=== PATIENT | female | born 1955 | race Caucasian/White ===

== ENCOUNTER 2020-05-17 10:21 | Outpatient (CLI) | payer BC, SELFPAY ==
--- NOTE | ~2020-05-17 | MM_ITS ---
EXAMINATION: MM screening justus BI w von HISTORY: Screening mammogram TECHNIQUE: Craniocaudal and mediolateral oblique 3-D tomosynthesis images were obtained and synthetic 2-D images were generated. CAD analysis was submitted and interpreted. COMPARISON: 06/10/2018, 10/11/2011 bilateral digital screening mammogram examinations BREAST PARENCHYMAL COMPOSITION: There are scattered areas of fibroglandular density. FINDINGS: There is no evidence of suspicious mass, calcification, or architectural distortion to sugg est malignancy in either breast. There has been no suspicious interval change. IMPRESSION: 1. No mammographic evidence of malignancy. 2. Recommend routine screening mammography in one year. BI-RADS Category 1: Negative Reviewed, dictated and finalized at location A.
== END 2020-05-17 10:22 | disposition home or self-care (01) ==
PROVIDERS: PCP Internal Medicine; Visit Provider Internal Medicine
DX: Z12.31 Encounter for screening mammogram for malignant neoplasm of breast (principal)
CPT/HCPCS: 77063; 77067

== ENCOUNTER 2024-02-11 08:48 | Outpatient (CLI) | payer MEDICARE, OTHER, SELFPAY ==
--- NOTE | ~2024-02-11 | MMUS_ITS ---
EXAMINATION: MM diagnostic justus BI w von, US breast RT limited HISTORY: Previous benign biopsy. TECHNIQUE: Additional 3-D tomosynthesis images of the breasts were performed and synthetic 2-D images were generated. CAD analysis was submitted and interpreted. High resolution Limited right breast ult rasound was performed. COMPARISON: Comparison to multiple prior studies sequentially, with oldest reviewed study dated 05/29. BREAST PARENCHYMAL COMPOSITION: Not dense: There are scattered areas of fibroglandular density. FINDINGS: MAMMOGRAPHIC FINDINGS: The left breast is stable without evidence for malignancy. There are 2 tissue markers in the upper ou ter quadrant of the right breast consistent with previous benign biopsies. There is a new obscured ar ea of asymmetry in the upper outer quadrant posterior to the tissue markers. ULTRASOUND: Complete US of all 4 quadrants of the right breast and retroareolar region was reviewed. At 9:00, 4 c m from the nipple is an irregular shaped partially cystic 6 mm mass with parallel orientation, no pos terior features and internal vascularity. At 9:00, 2 cm from the nipple, there is an oval partially c ystic 4 mm mass with parallel orientation, no internal vascularity and no posterior features. At 12:0 0, 8 cm from the nipple there is a 5 mm cyst. There are multiple additional cysts in the right breast . There is a larger complicated septated cyst measuring 1.8 cm at 10:00, 6 cm from the nipple likely corresponding to the asymmetry seen on mammography. IMPRESSION: 1. Irregular shaped 6 mm mass of the right breast at 9:00, 4 cm from the nipple. 2. Ultrasound-guided right breast biopsy recommended. BI-RADS category 4, suspicious findings. Reviewed, dictated and finalized at location B. IMPRESSION: 1. Irregular shaped 6 mm mass of the right breast at 9:00, 4 cm from the nipple . 2. Ultrasound-guided right breast biopsy recommended. BI-RADS category 4, suspicious findings.
== END 2024-02-11 08:49 | disposition home or self-care (01) ==
PROVIDERS: PCP Physician Assistant Medical; Visit Provider Physician Assistant Medical
DX: R92.8 Other abnormal and inconclusive findings on diagnostic imaging of breast (principal); N63.10 Unspecified lump in the right breast, unspecified quadrant
CPT/HCPCS: 76641; 76642; 77062; 77066; G0279

== ENCOUNTER 2024-06-08 15:24 | Emergency (ER) | payer MEDICARE, OTHER, SELFPAY ==
--- NOTE | ~2024-06-08 | US_ITS ---
EXAMINATION: US venous doppler LE RT DATE: 06/08/2024 18:20 INDICATION: Right leg pain TECHNIQUE: Grayscale ultrasound images without and with compression and Doppler ultrasound images of the right lower extremity veins were obtained. COMPARISON: None. FINDINGS: The visualized portions of right common femoral vein, profunda (deep) femoral vein, femoral vein, pop liteal vein, peroneal veins, posterior tibial veins, and greater saphenous vein outflow are patent. IMPRESSION: 1. No deep venous thrombosis within the right lower extremity, as detailed above. Reviewed, dictated and finalized at location A. L CUTTER IMPRESSION: 1. No deep venous thrombosis within the right lower extremity, as detailed abo ve.
--- NOTE | ~2024-06-08 | XR_ITS ---
XR knee RT 3V Ordering provider: Checo Goel MD History: . knee pain . Comparison: None. FINDINGS: BONES: No acute fracture or dislocation. JOINT SPACES: Normal. SOFT TISSUES: Normal. IMPRESSION: No acute osseous abnormality right knee. Reviewed, dictated and finalized at location A. ORTHOPEDIC TEAM PHYSICIAN
[2024-06-08 15:25] VITALS: BP 127/88; PULSE 86; RESP 20; TEMP 36.7; O2SAT 97
[2024-06-08] MEDS: KETOROLAC 30 MG/ML VIAL (*BKC) IM (16:32)
--- NOTE | 2024-06-08 16:55 | ED.GENADULT ---
HPI - General Adult General Chief complaint: Extremity Injury, Lower Stated complaint: right leg injury Time Seen by Provider: 06/08/24 16:18 History of Present Illness HPI narrative: patient is a 69-year-old female presents emergency department chief complaint of right knee pain. Patient reports that still saw her primary care provider several days ago had plain film x-rays the not been the right hip patient reports that she has had pain in the knee that reports that is not getting better he reports having difficulty putting any weight on it. Related Data Allergies Allergy/AdvReac Type Severity Reaction Status Date / Time codeine Allergy Mild Nausea Verified 06/08/24 15:30 hydromorphone AdvReac Unknown Palpitation Verified 06/08/24 15:30 s Review of Systems Review of Systems: A 10 system review of systems was completed on the patient and is negative except for what is stated in the HPI. Nursing and ancillary documentation was reviewed. PMFSH Past Medical History Medical History PAF (paroxysmal atrial fibrillation) only occurred as adverse reaction to Dilaudid Surgical History Surgical History History of cholecystectomy History of ureter stent Family History Family History Sibling Family history of congestive heart failure Social History Social History Smoking status: Never smoker Alcohol intake: never Alcohol use details: rarely Substance use: never Substance use type: does not use Do You Feel Safe in your Home?: Yes Lack of Transportation: No Lack of Food: Never True Current Housing: I Have Housing Concerned About Future Housing: No Difficulty Paying Gas/Electric Bills: No Difficulty Paying for Meds: No Currently Unemployed: No Education: Decline to Answer Difficulty w/ Childcare or Family Care: No Exam Narrative: GENERAL: Well-appearing, well-nourished, and in no acute distress. HEAD: Normocephalic, atraumatic. EYES: PERRLA and EOMI. ENT: Nares clear, no rhinorrhea or epistaxis. Mucous membranes moist. NECK: Supple. CHEST: Clear to auscultation. No respiratory distress. HEART: Regular rate and rhythm. No murmur heard. Normal peripheral pulses. ABDOMEN: Soft, nontender, nondistended, normal active bowel sounds. EXTREMITIES: Normal range of motion. No edema. SKIN: Warm, dry, no rash. NEURO: No focal deficits. Alert and oriented x3. PSYCH: Normal mood and affect. Course Vital Signs Vital signs: Vital Signs Temperature 36.7 C 06/08/24 15:25 Pulse Rate 86 06/08/24 15:25 Respiratory Rate 20 06/08/24 15:25 Blood Pressure 127/88 06/08/24 15:25 Pulse Oximetry 97 06/08/24 15:25 Oxygen Delivery Room Air 06/08/24 15:25 Temperature 36.7 C 06/08/24 15:25 Pulse Rate 86 06/08/24 15:25 Respiratory Rate 20 06/08/24 15:25 Blood Pressure 127/88 06/08/24 15:25 Pulse Oximetry 97 06/08/24 15:25 Oxygen Delivery Room Air 06/08/24 15:25 Medical Decision Making MDM Narrative Medical decision making narrative: Differential diagnosis includes fracture, Internal derangement of the knee. plain film x-rays were obtained of the right pain venous duplex was obtained that showed no evidence of DVT patient will be placed in a knee immobilizer at home and will remain placed on crutches and instructed to follow-up with her primary care provider and will be referred to Orthopedics Vital Signs Vital Signs: Vital Signs Temperature 36.7 C 06/08/24 15:25 Pulse Rate 86 06/08/24 15:25 Respiratory Rate 20 06/08/24 15:25 Blood Pressure 127/88 06/08/24 15:25 Pulse Oximetry 97 06/08/24 15:25 Oxygen Delivery Room Air 06/08/24 15:25 Temperature 36.7 C 06/08/24 15:25 Pulse Rate 86 06/08/24 15:25 Respiratory Rate 20 06/08/24 15:25 Blood Pressure 127/88 06/08/24 15:25 Pulse Oximetry 97 06/08/24 15:25 Oxygen Delivery Room Air 06/08/24 15:25 Discharge Plan Discharge Clinical Impression: Pain in right knee, Internal derangement of right knee Patient Disposition: Home, Self-Care Condition: Stable Instructions: Antibiotic Form, Crutch Instructions (ED), Knee Pain (ED), Knee Immobilizer (ED) Prescriptions: New diclofenac potassium 50 mg tablet 50 mg PO TID PRN (Reason: pain) Qty: 30 0RF Follow-up/Referrals: Benny Schneider MD [Physician] - Tran Melendez PA-C [Primary Care Provider] - Time of Disposition: 18:33
== END 2024-06-08 19:03 | disposition home or self-care (01) ==
PROVIDERS: Emergency Provider Emergency Medicine; PCP Physician Assistant Medical
DX: M23.91 Unspecified internal derangement of right knee (principal); Z90.49 Acquired absence of other specified parts of digestive tract; M79.604 Pain in right leg
CPT/HCPCS: 73562; 93971; 96372; 99284; J1885

== ENCOUNTER 2024-06-17 13:31 | Outpatient (CLI) | payer MEDICARE, OTHER, SELFPAY ==
--- NOTE | ~2024-06-17 | MR_ITS ---
EXAMINATION: MR knee RT wo con DATE: 06/17/2024 14:26 INDICATION: Right knee pain TECHNIQUE: Magnetic resonance imaging (MRI) of the right knee was performed without intravenous contr ast. Sequences included coronal PD-weighted FSE, coronal PD-weighted FS FSE, sagittal T2-weighted FS E, sagittal PD-weighted FS FSE and axial PD weighted fat saturated FSE. COMPARISON: None. FINDINGS: Medial compartment: Radial tear/avulsion of the posterior root of the medial meniscus. Additional focal small tear of ind eterminate morphology, likely vertical which extends to the inferior articular surface at the junctio n of the middle and inner thirds of the meniscus at the junction of the body and posterior horn. Part ial-thickness cartilage loss with relatively smooth chondral surface along the medial side of the ant erior to central weightbearing medial femoral condyle. Lateral compartment: Lateral meniscus is normal. Articular cartilage is normal. Patellofemoral compartment: Deep chondral ulceration with mild underlying edema-like signal change at the cephalad third of the p atellar apical ridge extending inferomedially to the central aspect of the medial patellar facet. The re is additional deep chondral fissuring extending inferolaterally from the apical ridge with additio nal mild subarticular edema-like signal change at the and central aspect of the lateral patellar face t. Partial-thickness chondral fissuring without degenerative subchondral changes at the inferior aspe ct of the trochlear groove. Ligaments and tendons: Anterior and posterior cruciate ligaments are normal. The medial collateral ligament and fibular silvia ateral ligament complex are normal. The extensor mechanism is normal. The visualized medial and later al hamstring tendons as well as the iliotibial band are normal. Fluid: Minimal right knee joint effusion at the suprapatellar pouch. No loose osteochondral bodies identifie d. Osseous/other: Normal marrow signal aside from the previously noted mild degenerative subchondral signal changes. No fracture or pathologic marrow replacing process. IMPRESSION: 1. Radial tear/avulsion at the posterior root of the medial meniscus with additional small likely stephanie tical tear at the junction of the body and posterior horn. 2. 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 Reviewed, dictated and finalized at location B. SE MACHINE OPERATOR HELPER IMPRESSION: 1. Radial tear/avulsion at the posterior root of the medial meniscus with addit ional small likely vertical tear at the junction of the body and posterior horn . 2. Mild osteoarthritis with moderate grade chondral malacia the medial compartm ent and with moderate and high-grade chondromalacia at the patellofemoral roula rtment.
== END 2024-06-17 13:32 | disposition home or self-care (01) ==
LOC: GOSHIMG 13:33
PROVIDERS: PCP Orthopaedic Surgery; Visit Provider Physician Assistant Medical
DX: M25.561 Pain in right knee (principal); S83.241A Other tear of medial meniscus, current injury, right knee, initial encounter; M17.11 Unilateral primary osteoarthritis, right knee; M22.41 Chondromalacia patellae, right knee
CPT/HCPCS: 73721

== ENCOUNTER 2024-06-20 08:53 | Emergency (ER) | payer MEDICARE, OTHER, SELFPAY ==
[2024-06-20 09:02] VITALS: BP 124/81; PULSE 93; RESP 16; TEMP 36.5; O2SAT 95
--- NOTE | 2024-06-20 09:27 | ED.FEMALEGU ---
HPI - Female Genitourinary General Chief complaint: Urogenital-Female Stated complaint: Uti Symptoms Time Seen by Provider: 06/20/24 09:28 Source: patient Mode of arrival: ambulatory Limitations: no limitations History of Present Illness HPI Narrative: 69-year-old female presents with complaint of urinary frequency, urgency for 2 days. Patient states prior to that she had urinary frequency and urgency about a week ago. Took azo and symptoms improved. Started taking azo again this morning. Reports chills and body aches last night. Concern for urinary tract infection. Denies nausea vomiting. All systems reviewed and negative except as noted above. Related Data Allergies Allergy/AdvReac Type Severity Reaction Status Date / Time codeine Allergy Mild Nausea Verified 06/20/24 09:13 hydromorphone AdvReac Unknown Palpitation Verified 06/20/24 09:13 s Review of Systems Review of Systems: CONSTITUTIONAL: Denies fever, chills, or sweats. EYES: Denies visual changes, redness, or discharge. ENT: Denies rhinorrhea, congestion, sore throat, or otalgia. CARDIOVASCULAR: Denies chest pain, palpitations, or edema. RESPIRATORY: Denies cough or dyspnea. GASTROINTESTINAL: Denies abdominal pain, nausea, vomiting, or diarrhea. GENITOURINARY: Denies dysuria or hematuria. Reports urinary frequency, urgency, incontinence. SKIN: Denies rash or itching. MUSCULOSKELETAL: Denies back pain, joint pain, or myalgia. NEUROLOGIC: Denies headache, numbness, or weakness. PSYCHIATRIC: Denies anxiety or depression. All other systems reviewed are negative, except as documented in HPI. COUNT INCLUDES THE [facility] Past Medical History Medical History (Updated 06/20/24 @ 09:34 by Natalia Clement NP) Chondromalacia, right knee DJD (degenerative joint disease) of knee Medial meniscus tear PAF (paroxysmal atrial fibrillation) only occurred as adverse reaction to Dilaudid Pain in right knee Surgical History Surgical History History of cholecystectomy History of ureter stent Family History Family History Sibling Family history of congestive heart failure Social History Social History Smoking status: Never smoker Alcohol intake: never Alcohol use details: rarely Substance use: never Substance use type: does not use Do You Feel Safe in your Home?: Yes Lack of Transportation: No Lack of Food: Never True Current Housing: I Have Housing Concerned About Future Housing: No Difficulty Paying Gas/Electric Bills: No Difficulty Paying for Meds: No Currently Unemployed: No Education: Decline to Answer Difficulty w/ Childcare or Family Care: No Comments At time of signature, agree with nursing past medical, surgical, social and family history. There is no relevant family history pertinent to the presenting complaint. Exam Narrative: GENERAL: This is a well-nourished, well-developed patient, in no apparent distress. HEAD: normocephalic, atraumatic. EYES: PERRL. Sclera clear/white. Vision is grossly intact. EARS: External ears normal NOSE: External nose normal NECK: Neck supple, non-tender without lymphadenopathy, masses or thyromegaly. CARDIOVASCULAR: Regular rate and rhythm without murmurs, gallops, or rubs. RESPIRATORY: Clear to auscultation. Breath sounds equal bilaterally. No wheezes, rales, or rhonchi. SKIN: warm, Dry, intact with no suspicious lesions or rash, good texture and turgor. NEURO: awake, alert, and oriented to person, place and time. There were no obvious focal neurologic abnormalities. EXTREMITIES: No joint tenderness, effusion, or edema noted. Course Course Level of Care: Express Care Visit Vital Signs Vital signs: Vital Signs Temperature 36.5 C 06/20/24 09:02 Pulse Rate 93 06/20/24 09:02 Respiratory Rate 16 06/20/24 09:02 Blood Pressure 124/81 06/20/24 09:02 Pulse Oximetry 95 06/20/24 09:02 Temperature 36.5 C 06/20/24 09:02 Pulse Rate 93 06/20/24 09:02 Respiratory Rate 16 06/20/24 09:02 Blood Pressure 124/81 06/20/24 09:02 Pulse Oximetry 95 06/20/24 09:02 Reviewed MDM - Female Genitourinary MDM Narrative Medical decision making narrative: Urinalysis most likely inaccurate due to patient taking azo. Urine culture ordered. Will treat patient with antibiotic today due to patient's symptoms. Patient well-appearing, nontoxic. Patient is aware of diagnosis, understands and agrees to treatment plan. Anticipatory guidance given. Patient agrees to follow-up as directed and is aware of reasons to seek care at the emergency department. Portions of this record may have been created with voice recognition software Lab Data Labs: Lab Results 06/20/24 Range/Units 09:29 POC Urine Color [place] POC Urine Clarity Clear POC Urine pH 6.0 POC Ur Specif [place] 1.015 POC Urine Protein 2+ (Negative) POC Ur Glucose (UA) Negative (Negative) POC Urine Ketones Negative (Negative) POC Urine Blood Negative (Negative) POC Urine Nitrite Negative (Negative) POC Urine Bilirubin Negative (Negative) POC Urine Urobilinogen 0.2 POC U Leukocyte Esteras Trace (Negative) Discharge Plan Discharge Clinical Impression: Urinary tract infection Qualifiers: Urinary tract infection type: site unspecified Hematuria presence: without hematuria Qualified Code(s): N39.0 - Urinary tract infection, site not specified Patient Disposition: Home, Self-Care Condition: Stable Instructions: Antibiotic Form, Urinary Tract Infection in Women (DC) Additional Instructions: Take antibiotic as prescribed until gone. Take Tylenol or ibuprofen every 6-8 hours as needed for pain and fever. May continue to take [id number] azo as needed for your symptoms. Drink at least 64 oz water a day. Follow-up with your primary care physician if symptoms are not improving. If you have fever, severe pain, vomiting go to the ER. Prescriptions: New ciprofloxacin HCl 500 mg tablet 500 mg PO BID 7 Days Qty: 14 0RF Follow-up/Referrals: Tran Melendez PA-C [Primary Care Provider] - Time of Disposition: 09:34
[2024-06-20 09:31] LABS: EDUAAPPEAR Clear; EDUABILI Negative (Negative); EDUABLOOD Negative (Negative); EDUACOLOR1 Orange; EDUAGLUCOSE Negative (Negative); EDUAKETONE Negative (Negative); EDUALEUKO Trace (Negative); EDUANITRATE Negative (Negative); EDUAPROTEIN 2+ (Negative); EDUASPGRAVITY 1.015; EDUAUROBILI 0.2
== END 2024-06-20 09:39 | disposition home or self-care (01) ==
PROVIDERS: Emergency Provider Nurse Practitioner Family; PCP Physician Assistant Medical
DX: N39.0 Urinary tract infection, site not specified (principal)
CPT/HCPCS: 81003; 87086; 99213; G0463

== ENCOUNTER 2024-09-03 12:58 | Outpatient (CLI) | payer MEDICARE, OTHER, SELFPAY ==
--- NOTE | ~2024-09-03 | MMUS_ITS ---
EXAMINATION: MM diagnostic justus RT w von, US breast RT complete HISTORY: Right breast lump. TECHNIQUE: Additional 3-D tomosynthesis images of the right breast were performed and synthetic 2-D i mages were generated. CAD analysis was submitted and interpreted. High resolution complete right erlinda st ultrasound was performed. COMPARISON: Comparison to multiple prior studies sequentially, with oldest reviewed study dated 05/29. BREAST PARENCHYMAL COMPOSITION: Not dense: There are scattered areas of fibroglandular density. FINDINGS: MAMMOGRAPHIC FINDINGS: There are multiple masses of the right breast, largest in the upper outer quadrant of the right breas t, middle third measuring approximately 2.1 cm cyst. There are no suspicious calcifications or jeremias ectural distortion. ULTRASOUND: Complete US of all 4 quadrants of the right breast/s and retroareolar region was reviewed. At 12:00, 3 cm from the nipple there is a 5 mm cyst. At 4:00, 4 cm from the nipple there is a branching tubular structure consistent with mildly dilated ducts. At 6:00, 1 cm from the nipple there is an oval hypoe choic mass measuring 9 x 3 x 5 mm with low-level internal echoes, likely benign. At 9:00, 4 cm from t he nipple there is a cluster of microcysts measuring 6 mm. At 10:00, 6 cm from the nipple there is a 2 cm cyst corresponding to the dominant right breast mass seen on mammography. IMPRESSION: 1. Stable likely benign right breast masses. 2. Recommend 6 month follow-up diagnostic right mammogram and Limited right breast ultrasound. BI-RADS category 3, probably benign findings. Reviewed, dictated and finalized at location B. GENCY ROOM RN IMPRESSION: 1. Stable likely benign right breast masses. 2. Recommend 6 month follow-up diagnostic right mammogram and Limited right ana ast ultrasound. BI-RADS category 3, probably benign findings.
--- OUTSIDE RECORDS SUMMARY | 2024-09-03 13:04 | XMS_ITS | Continuity of Care Document ---
Author Organization [facility] Address [address] [place] [address] Phone Care Team Providers Care Lab Manager Name Role Phone Deepa White Unavailable Unavaila ble Allergies, Adverse Reactions, Alerts Substance Reaction Status Criticality HYDROMORPHONE HCL Active No Informa tion codeine Active No Information Medications Medication Instructions Dosage Effective Dates (start - stop) Status Comments hydrocodone 5 mg-acetaminophen 325 mg tablet take 1 - 2 Tablet by oral route every 4 - 6 hours as needed for pain. Maximum 10 tablets per day - Active ibuprofen 400 mg tablet take 1 tablet by oral route every 4 - 6 hours as needed 400 MG - Active Osteo Bi-Flex 250 mg-200 mg tablet take 2 tablet by oral route every day 2 tablet - Active Centrum Silver Women 8 mg iron-400 mcg-50 mcg tablet - Active Procedures Procedure Date POSTOP FOLLOW-UP VISIT KNEE ARTHROSCOPY/SURGERY RADEX KNE / VIEWS OFFICE/OUTPATIENT VISIT NEW Advance Directives Directive Yes / No Effective Date File Name No Information Encounters Encounter Description Practice Location Reason(s) For Visit Diagnoses Date Provider Providers Copied on Encounter [facility] , [address], [place], [address], [place] tel:[phone] [facility] S/P right knee arthroscopy Zheng Arenas. [address], [place], [address]. tel:[phone] Referring Provider: Tran Mon, [address] [place] [address], [address]. tel:[phone] [facility] , [address], [address], [place] [phone] [facility] Effusion, right kneeOther tear of medial meniscus, current injury, right knee, initial encounter [address] [place] [address] [facility], [place], [place], [id number] . tel: [phone] [facility] , [address], [address], [place] tel:[phone] [facility] No Information [address] [address] [facility], [place], [place], [id number] . tel: [phone] [facility] , [address], [address], tel:[phone] [facility] Tear of medial meniscus of right knee, unspecified tear type, unspecified whether old or current tear, initial encounter [address] [place] [address] [facility], [place], [place], [id number] . tel: [phone] OFFICE/OUTPAT IENT VISIT NEW [facility] , [address], [address], [place] tel:[phone] [facility] Pain, joint, knee, rightTear of medial meniscus of right knee, unspecified tear type, unspecified whether old or current tear, initial encounterChon dromalacia, right knee [address] [place] [address] [facility], [place], [place], [id number] . tel: [phone] Referring Provider: Tran Mon, [address] [place] [address], [address]. tel:[phone] Family History Family Member Type Diagnosis Age At Onset No Information Payers Payer name Insurance type Covered constitution party ID Authorbelkis us(s) Medicare E2 OT [id number] [place] Kaye Mariee [place] [id number] Social History Type Description Quantity Date Captured Comments Alcohol Use Details Unknown Caffeine Use Details Unknown Tobacco Use Status No Information Smoking Status No Information Sex Female Vital Signs Date / Time: Height Weight BMI Pulse Rate Blood Pressure Temperature Respiratory Rate Body Surface Area Head Circumference Head Circ. Percentile Wt./Theo. Percentile BMI percentile Pulse Ox Inhaled Ox 10:37 AM 63.00 in 83.915 kg (185.00 lbs) 32.7 7 kg/m eter (2) Chief Complaint And Reason For Visit No Information Reason For Referral Reason For Referral No Information Plan Of Treatment Date Type Action Status Referral Ordered: RADEX KNE /2 VIEWS RT knee ordered Patient Education Knee: Exercises complet ed History Of Present Illness Encounter Date Complaint History Of Prese nt Illness No Information Functional Status Date Functional Assessmen t Pain Score 2/10 Instructions Date Instruction Additional Infor agus Fall prevention home exercise program handout provided Assessments Type Assessment Date assessment S/P right knee arthroscopy Patient Care Teams Name Effective Dates (start - stop) Status Members No Information
--- OUTSIDE RECORDS SUMMARY | 2024-09-03 13:04 | XMS_ITS | Clinical Summary ---
Author Organization [facility] Address [address] [place] [id number] Care Team Providers Care Cylinder Inspector And Tester Name Role Phone Unavailable Primary Care Provider Unavailabl e Social History Tobacco Use Types Packs/Day Years Used Date Smoking Tobacco: Never Assessed Comments Unknown Sex and Gender Information Value Date Recorded Sex Assigned at Not on file Legal Sex Female 1:44 AM CDT Gender Identity Not on file Sexual Orientation Not on file Plan of Treatment Health Maintenance Due Date Last Done Comments Colorectal Cancer Screening Colonoscopy (10 Years) 1957 Hepatitis C 1975 DTaP, Tdap and Td Vaccines ( 1 - Tdap) 1976 Mammogram Screening 1997 Zoster Vaccines (1 of 2) 2007 Dexa Scan (General) 2022 Pneumococcal Vaccine: 65+ Ye ars (1 of 1 - PCV) 2022 COVID-19 Vaccine ( - 2023-2 5 season) 2024 Influenza Adult (#1) 2024 RSV Immunization or 60+ Years (1 - 1-dose 75+ series) 2032 Meningococcal B Vaccine Aged Out No l onger eligible based on patient's age to complete this topic Meningococcal Vaccine Aged Out No jamel lamont eligible based on patient's age to complete this topic RSV Immunizations Under 20 Months Aged Out No longer eligible based on patient's age to complete this topic
== END 2024-09-03 12:59 | disposition home or self-care (01) ==
LOC: ANHIMG 12:59
PROVIDERS: PCP Physician Assistant Medical; Visit Provider Surgery
DX: R92.8 Other abnormal and inconclusive findings on diagnostic imaging of breast (principal); N63.10 Unspecified lump in the right breast, unspecified quadrant
CPT/HCPCS: 76641; 77061; 77065; G0279

== ENCOUNTER 2024-10-12 14:35 | Outpatient (CLI) | payer MEDICARE, OTHER, SELFPAY ==
--- NOTE | ~2024-10-12 | MR_ITS ---
MR breast BI wo/w con 10/13/2024 08:14 CDT INDICATION: Nipple discharge. Breast mass. TECHNIQUE: MRI of the breasts perform using standard protocol pre-and post IV contrast with the follo wing sequences: Axial T2 STIR, axial T1, axial vibrant T1 with fat suppression precontrast and multip hasic postcontrast. 17 cc ProHance administered intravenously. COMPARISON: Comparison to multiple prior studies including mammograms and ultrasounds sequentially, w ith oldest reviewed study dated 05/17/2020. FINDINGS: There are multiple bilateral breast cysts. There are scattered areas of fibroglandular cont ent. Right breast: There are no abnormalities on the precontrast sequences. There is minimal background pa renchymal enhancement. No enhancing lesions following contrast administration. No areas of enhancem ent meeting threshold criteria on CAD analysis. No evidence of signal abnormalities in the axillary or internal mammary node distributions. LEFT BREAST: No signal abnormalities on precontrast sequences. There is minimal background parenchym al enhancement. No enhancing lesions following contrast administration. No areas of enhancement me eting threshold criteria on CAD analysis. No evidence of signal abnormalities in the axillary or in ternal mammary node distributions.] IMPRESSION: 1: Right breast: Negative. No evidence of malignancy. BI-RADS category 2. Recommend annual mammo graphy follow-up. 2: Left breast: Negative. No evidence of malignancy. BI-RADS category 2. Recommend annual mammogr aphy follow-up. Follow-up MRI may be useful for supplementing mammographic evaluation as clinically indicated. Reviewed, dictated and finalized at location B. IMPRESSION: 1: Right breast: Negative. No evidence of malignancy. BI-RADS category 2. Recommend annual mammography follow-up. 2: Left breast: Negative. No evidence of malignancy. BI-RADS category 2. Re commend annual mammography follow-up. Follow-up MRI may be useful for supplementing mammographic evaluation as clinic ally indicated.
--- OUTSIDE RECORDS SUMMARY | 2024-10-12 17:14 | XMS_ITS | Continuity of Care Document ---
Author Organization [facility] Address [address] [place] [address] [address] [place] [address] Phone Care Team Providers Care Principal Architect Name Role Phone Zheng Deepa RODRIGUEZ Unavailable Unavaila ble Allergies, Adverse Reactions, Alerts [...] mcg tablet - Active Procedures Procedure Date Drugs unclassified injection Methylprednisolone 40mg/ml inj 25 DRAIN/INJECT JOINT/BURSA POSTOP FOLLOW-UP VISIT POSTOP FOLLOW-UP VISIT KNEE ARTHROSCOPY/SURGERY RADEX KNE 1/2 VIEWS OFFICE/OUTPATIENT VISIT NEW Advance Directives Directive Yes / No Effective Date File Name Other Directive No N/A N/A WARNING:The information contained in this section is historical and is provided for information only and does not constitute a legal document or any assurance that the information is still accurate. Please verify the information with the lobo of the legal document before using it for clinical purposes. Encounters Encounter Description Practice Location Reason(s) For Visit Diagnoses Date Provider Providers Copied on Encounter [facility], [address] [facility] [address], [place], [address], [place] tel:[phone] [facility] S/P right knee arthroscopyPrimar y osteoarthritis of right kneeChondromalaci a of medial condyle of right femur 5 Zheng Arenas. [address], [place], [address]. tel:[phone] Referring Provider: Tran Mon, [address] [place] [address], [address]. tel:[phone] [facility], [address] [address], [place], [address], [place] tel:[phone] [facility] S/P right knee arthroscopy 5 Zheng Shafferyna. [address], [place], [address]. tel:[phone] Referring Provider: Tran Mon, [address] [place] [address], [address]. tel:[phone] [facility], [address] [address], [place], [address], [place] tel:[phone] [facility] Effusion, right kneeOther tear of medial meniscus, current injury, right knee, initial encounter 5 L[place]Hom[address] [place]. [address] [facility], [place], [place], [id number] . tel:[phone] [facility], [address] [facility] [address], [place], [address], [place] tel:[phone] [facility] No Information 5 L'Hommedi eu [place]. [address] [facility], [place], [place], [id number] . tel:[phone] [facility], [address] [facility] [address], [place], [address], [place] tel:[phone] [facility] Tear of medial meniscus of right knee, unspecified tear type, unspecified whether old or current tear, initial encounter 4 L'Hommedi eu [place]. [address], [place], [place], [id number] . tel: [phone] OFFICE/OUTPA TIENT VISIT NEW [facility], [address], [place], [address], tel:[phone] [facility] Pain, joint, knee, rightTear of medial meniscus of right knee, unspecified tear type, unspecified whether old or current tear, initial encounterChondrom alacia, right knee 4 L'Hommedi [place]. [address], [place], [place], [id number] . tel: [phone] Referring Provider: Tran Mon, [address] [place] [address], [address]. tel:[phone] Family History Family Member Type Diagnosis Age At Onset No Information Payers Payer name Insurance type Covered democrat ID Mane us(s) Medicare E2 OT [id number] [facility] OT [id number] Social History Type Description Quantity Date Captured Comments Alcohol Use Details Unknown Caffeine Use Details Unknown Tobacco Use Status Current non-smoker Smoking Status Never smoker Non-Smoking Tobacco Use Details : No Details Available : No Details Available Sex Female Chief Complaint And Reason For Visit No Information Reason For Referral Reason For Referral No Information Plan Of Treatment Date Type Action Status Referral Ordered: RADEX KNE / VIEWS RT knee ordered Patient Education Knee: Exercises complet ed History Of Present Illness Encounter Date Complaint History Of Prese nt Illness No Information Functional Status Date Functional Assessmen t No Information Instructions Date Instruction Additional Infor matvickie Fall prevention home exercise program handout provided Assessments Type Assessment Date assessment S/P right knee arthroscopy assessment Primary osteoarthritis of right knee assessment 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
--- OUTSIDE RECORDS SUMMARY | 2024-10-12 17:14 | XMS_ITS | Clinical Summary ---
Author Organization [facility] Address [address] [place] [address] Care Team Providers Care Garage Door Hanger Name Role Phone Unavailable Primary Care Provider [...]
== END 2024-10-12 14:36 | disposition home or self-care (01) ==
PROVIDERS: PCP Physician Assistant Medical; Visit Provider Surgery
DX: N64.52 Nipple discharge (principal); R92.8 Other abnormal and inconclusive findings on diagnostic imaging of breast; N63.10 Unspecified lump in the right breast, unspecified quadrant; N63.15 Unspecified lump in the right breast, overlapping quadrants
CPT/HCPCS: 77049; A9579; C8908

== ENCOUNTER 2025-03-26 13:22 | Outpatient (CLI) | payer MEDICARE, OTHER, SELFPAY ==
--- OUTSIDE RECORDS SUMMARY | 2024-12-24 04:05 | XMS_ITS | Continuity of Care Document ---
Author Organization [facility] Address [address] [address] [place] [address] Phone Care Team Providers Care Decker Operator Name Role Phone Zheng Deepa RODRIGUEZ Unavailable [...] mcg tablet - Active Procedures Procedure Date RADEX KNE COMPL 4/MORE VIEWS Triamcinolone acet inj NOS Drugs unclassified injection DRAIN/INJECT JOINT/BURSA OFFICE/OUTPATIENT VISIT EST Drugs unclassified injection Methylprednisolone 40mg/ml inj DRAIN/INJECT JOINT/BURSA POSTOP FOLLOW-UP VISIT POSTOP FOLLOW-UP VISIT KNEE ARTHROSCOPY/SURGERY RADEX KNE 1/2 VIEWS OFFICE/OUTPATIENT VISIT NEW Advance Directives Directive Yes / No Effective Date File Name No Information Encounters Encounter Description Practice Location Reason(s) For Visit Diagnoses Date Provider Providers Copied on Encounter OFFICE/OUTPA TIENT VISIT EST [facility], [address] [facility] [address], [place], [address], [place] tel:[phone] [facility] S/P right knee arthroscopyPrimar y osteoarthritis of right knee 5 Humbertomir Shafferyna. [address], [place], [address]. [phone] Referring Provider: Tran Mon, [address] [place] [address], [address]. tel:[phone] [facility], [address] [facility] [address], [place], [address], [place] tel:[phone] [facility] S/P right knee arthroscopyPrimar y osteoarthritis of right kneeChondromalaci a of medial condyle of right femur 5 Zheng Arenas. [address], [place], [address]. [phone] Referring Provider: Tran Mon, [address] [place] [address], [address]. tel:[phone] [facility], [address] [facility] [address], [place], [address], [place] tel:[phone] [facility] S/P right knee arthroscopy 5 Zheng Bellamya. [address], [place], [address]. [phone] Referring Provider: Tran Mon, [address] [place] [address], [address]. tel:[phone] [facility], [address] [facility] [address], [place], [address], [place] tel:[phone] [facility] Effusion, right kneeOther tear of medial meniscus, current injury, right knee, initial encounter 5 Ruslan Escalona. [address], [place], [place], [id number] . tel: [phone] [facility], [address] [facility] [address] [address], [place], [address], tel:[phone] [facility] No Information 5 L'Hommedi eu [place]. [address] [facility] [address] [place], [place], [address] . tel: [phone] [facility], [address], [address], [place] tel:[phone] [facility] Tear of medial meniscus of right knee, unspecified tear type, unspecified whether old or current tear, initial encounter 4 L'Hommedi eu [place]. [address] [facility] [address] , [place], [place], [address] . tel: [phone] OFFICE/OUTPA TIENT VISIT NEW [facility], [address], [address], tel:[phone] [facility] Pain, joint, knee, rightTear of medial meniscus of right knee, unspecified tear type, unspecified whether old or current tear, initial encounterChondrom alacia, right knee 4 L'Hom[address] eu [place]. [address] [facility] [address] [place], [place], [address] . tel: [phone] Referring Provider: Tran Mon, [address] [place] [address], [address]. tel:[phone] Family History Family Member Type Diagnosis Age At Onset No Information Payers Payer name Insurance type Covered libertarian ID Authoreleuterioa tidamian(s) Medicare E2 OT [id number] [facility] [place] [id number] Social History Type Description Quantity Date Captured Comments Alcohol Use Details Unknown Caffeine Use Details Unknown Tobacco Use Status No Information Smoking Status No Information Sex Female Chief Complaint And Reason For Visit No Information Reason For Referral Reason For Referral No Information Plan Of Treatment Date Type Action Status Referral Ordered: RADEX KNE COMPL 4/MORE VIEWS RT knee ordered Referral Ordered: RADEX KNE 1/2 VIEWS RT knee ordered Patient Education Knee: Exercises complet ed History Of Present Illness Encounter Date Complaint History Of Prese nt Illness No Information Functional Status Date Functional Assessmen t No Information Instructions Date Instruction Additional Infor agus Fall prevention home exercise program handout provided Assessments Type Assessment Date assessment S/P right knee arthroscopy assessment Primary osteoarthritis of right knee Patient Care Teams Name Effective Dates (start - stop) Status Members No Information
--- NOTE | ~2025-03-26 | MMUS_ITS ---
EXAMINATION: MM diagnostic justus BI w von, US breast RT limited INDICATION: 69-year old female; BI-RADS 3, short-term follow-up probably benign right breast findings. COMPARISON: 09/03/2024 through 05/19/2009 TECHNIQUE: Digital breast tomosynthesis True lateral, CC and MLO views of the BILATERAL breast and spot compression in CC view of the right breast were obtained with computer-aided detection to assist in interpretation of the study. MAMMOGRAM FINDINGS: There are scattered areas of fibroglandular density. The masses of concern in the upper outer right breast redemonstrated are unchanged. No new suspicious mass, calcification or architectural distortion to suggest malignancy in either breast. Biopsy clips in the right breast. RIGHT BREAST ULTRASOUND FINDINGS: Targeted evaluation of the area of concern was completed. Previously reported probably benign cluster of cysts at 9:00, 4 cm from the nipple has resolved in the interval and not seen on this examination. The rest of the masses scattered in the right breast are unchanged. 0.4 cm hypoechoic mass at 6:00 location 1 cm from the nipple in the LEFT breast redemonstrated is is Unchanged. 2.2 cm anechoic mass at 10:00 location 6 cm from the nipple in the LEFT breast redemonstrated is is Unchanged. IMPRESSION: Probable Benign RIGHT breast findings are unchanged. No mammographic evidence of malignancy within the left breast. RECOMMENDATION: 12 month follow-up diagnostic BILATERAL mammogram and RIGHT breast ultrasound. BI-RADS 3, PROBABLY BENIGN Reviewed, dictated and finalized at location B. IMPRESSION: Probable Benign RIGHT breast findings are unchanged. No mammographic evidence of malignancy within the left breast. RECOMMENDATION: 12 month follow-up diagnostic BILATERAL mammogram and RIGHT breast ultrasound. BI-RADS 3, PROBABLY BENIGN
== END 2025-03-26 13:23 | disposition home or self-care (01) ==
LOC: ANHFOHIMG 13:22
PROVIDERS: PCP Physician Assistant Medical; Visit Provider Surgery
DX: R92.8 Other abnormal and inconclusive findings on diagnostic imaging of breast (principal); N63.15 Unspecified lump in the right breast, overlapping quadrants; N63.22 Unspecified lump in the left breast, upper inner quadrant; N64.52 Nipple discharge
CPT/HCPCS: 76642; 77062; 77066; G0279